=== PATIENT | male | born 1940 | race Hispanic/Latino ===

== ENCOUNTER → 2022-01-07 12:07 | Outpatient (CLI) | payer MEDICARE, MEDICAID, SELFPAY ==
--- NOTE | 2022-01-12 11:37 | PM.PFT.1 ---
Pulmonary Function Test Referral & Results Date Patient Seen: 01/07/22 Indication: Dyspnea Results: The spirometry demonstrates an FVC of 3.15 L which is 90% of predicted. The FEV1 was measured at 2.42 L which is 98% of predicted. The FEV1/FVC ratio was 77 which is 108% of predicted. Following the administration of bronchodilator there was a 22% improvement in FEF 25-75% Lung volumes show an SVC of 3.11 L which is 78% of predicted. The diffusing capacity was measured at 16.04 which is 56% of predicted. No hemoglobin value was provided, so no correction for potential anemia could be made, if appropriate. The maximum voluntary ventilation was reduced Interpretation: Study demonstrates mild restrictive lung disease based on minimal reduction in lung volumes as above There is also a [id number] reduction diffusing capacity suggesting disease at the capillary alveolar level Clinical correlation suggested
== END ==
PROVIDERS: PCP Internal Medicine; Referring Provider Nurse Practitioner; Visit Provider Nurse Practitioner
DX: J44.9 Chronic obstructive pulmonary disease, unspecified (principal); R06.00 Dyspnea, unspecified
CPT/HCPCS: 94060; 94726; 94729

== ENCOUNTER → 2025-03-13 15:45 | Outpatient (CLI) | payer MEDICARE, MEDICAID, SELFPAY ==
--- NOTE | 2025-03-13 15:47 | DI.US.S_ITS ---
PROCEDURE: US PERIPH VENOUS LOW EXTREM BI INDICATIONS: LEG SWELLING TECHNIQUE: Real-time imaging, as well as color and pulse Doppler interrogation, were performed of the deep veins of both legs from the inguinal ligament to the popliteal fossa, with documentation of the visualized calf veins. COMPARISON: None. FINDINGS: Right: The common femoral, femoral, popliteal, and the visualized calf veins are normally compressible, and free of intraluminal thrombus. Color and pulse Doppler demonstrate normal phasic intravascular flow. There is normal augmentation response to distal compression maneuver. Left: The common femoral, femoral, popliteal, and the visualized calf veins are normally compressible, and free of intraluminal thrombus. Color and pulse Doppler demonstrate normal phasic intravascular flow. There is normal augmentation response to distal compression maneuver. Lipscomb cyst is present measuring 4.0 x 1.5 x 2.8 cm. IMPRESSION: No findings of deep venous thrombosis in either lower extremity. Left Lipscomb's cyst. Dictated by: Maxine Lees M.D. on 03/13/2025 at 16:50 Approved by: Maxine Lees M.D. on 03/13/2025 at 16:51
== END ==
PROVIDERS: PCP Family Medicine; Referring Provider Internal Medicine Cardiovascular Disease; Visit Provider Internal Medicine Cardiovascular Disease
DX: M79.89 Other specified soft tissue disorders (principal); M71.22 Synovial cyst of popliteal space [Baker], left knee
CPT/HCPCS: 93970